=== PATIENT | male | born 1980 | race Two or more races ===

== ENCOUNTER 2018-04-19 00:17 | Emergency (ER) | payer MEDICAID, OTHER ==
[~2018-04-19] VITALS: Ht 175.3 cm; Wt 90.7 kg
[2018-04-19] MEDS ORDERED: COCAINE HCL 4% TOP SOL 4ML TOP ONE ×2 (00:56→01:00)
[2018-04-19] MEDS ORDERED: PHENYLEPHRINE HCL 0.5 % NASAL SPRAY 15ML ONE (01:00)
[2018-04-19 01:29] LABS: Basophils # (auto) 0.1 uL; Basophils % (auto) 1.1 % (0.0-2.0); Eosinophils # (auto) 0.1 uL; Eosinophils % (auto) 1.2 % (0.0-7.0); Hematocrit 38.6 % (41.0-53.0); Hemoglobin 13.1 g/dL (13.5-17.5); Lymphocytes % (auto) 25.4 % (10.0-50.0); Mean Corpuscular Hemoglobin 31.1 pg (28.0-32.0); Mean Corpuscular Hgb Conc. 33.9 g/dL (32.0-36.0); Monocytes # (auto) 0.6 uL; Neutrophils % (auto) 64.3 % (37.0-80.0); Nucleated Red Blood Cells % 0.1 %; Platelet Count (auto) 341 10^3/uL (140-450); Red Cell Distribution Width 13.2 % (11.8-14.3); White Blood Cell 7.7 10^3/uL (4.4-10.8)
[2018-04-19 01:44] LABS: INR 0.96 (0.9-1.15); Partial Thromboplastin Time 26.4 sec (23.78-33.04); Prothrombin Time 10.3 sec (9.27-12.13)
[2018-04-19 01:47] LABS: Albumin 3.3 g/dL (3.4-5.0); BUN/Creatinine Ratio 30.4; Calcium 7.9 mg/dL (8.5-10.1); Potassium 3.5 mmol/L (3.5-5.1)
[2018-04-19 01:50] LABS: Bilirubin, Total 0.4 mg/dL (0.2-1.0); Total Protein 7.5 g/dL (6.4-8.2)
[2018-04-19 05:53] VITALS: BP 134/78
== END 2018-04-19 05:53 | disposition home or self-care (01) ==
LOC: ER 00:22
DX: R04.0 Epistaxis (principal)
CPT/HCPCS: 30901; 36415; 80053; 85025; 85610; 85730

== ENCOUNTER → 2020-01-20 | Emergency (ER) | payer MEDICAID ==
[~2020-01-20] VITALS: Ht 180.3 cm; Wt 88.9 kg
[2020-01-20 10:35] VITALS: BP 171/117
== END | disposition home or self-care (01) ==
LOC: ER 10:19
DX: B35.0 Tinea barbae and tinea capitis (principal)

== ENCOUNTER 2020-04-27 08:39 | Emergency (ER) | payer MEDICAID ==
[~2020-04-27] VITALS: Ht 177.8 cm; Wt 95.3 kg
[2020-04-27 08:41] VITALS: BP 179/136
[2020-04-27] MEDS ORDERED: LIDOCAINE 1% HCL (LOCAL ANESTH.) INJ 20ML MDV IJ ONE (09:45)
== END 2020-04-27 09:41 | disposition home or self-care (01) ==
LOC: ER 08:39
DX: L02.811 Cutaneous abscess of head [any part, except face] (principal); B35.0 Tinea barbae and tinea capitis
CPT/HCPCS: 10060

== ENCOUNTER 2020-04-29 09:57 | Emergency (ER) | payer MEDICAID ==
[~2020-04-29] VITALS: Ht 177.8 cm; Wt 95.3 kg
[2020-04-29 10:04] VITALS: BP 144/119
== END 2020-04-29 10:39 | disposition home or self-care (01) ==
LOC: ER 09:57
DX: Z48.01 Encounter for change or removal of surgical wound dressing (principal)